=== PATIENT | female | born 1985 | race Hispanic/Latino ===

== ENCOUNTER 2020-11-16 13:45 | Emergency (ER) | payer MEDICAID, OTHER ==
[~2020-11-16] VITALS: Ht 154.9 cm; Wt 89.8 kg
[2020-11-16 13:47] VITALS: BP 119/64
[2020-11-16] MEDS ORDERED: MAG/ALUM/SIMETH 30 ML UDCUP PO ONE (14:00)
[2020-11-16 14:21] LABS: BASOPHILS % (AUTO) 0.3 % (0.0-5.0); HEMATOCRIT 39.8 % (36-48); LYMPHOCYTES % (AUTO) 27.9 % (21.0-51.0); MEAN CORPUSCULAR HEMOGLOBIN 26.1 pg (27.0-33.0); MEAN CORPUSCULAR HGB CONC 31.9 g/dL (32.0-36.0); MEAN CORPUSCULAR VOLUME 81.7 fL (79-99); MONOCYTES % (AUTO) 7.1 % (3.0-13.0); NEUTROPHILS % (AUTO) 63.3 % (40.0-77.0); PLATELET COUNT (AUTO) 288 K/uL (130-400); RED BLOOD CELL COUNT(AUTO) 4.87 MIL/uL (4.00-5.50); RED CELL DISTRIBUTION WIDTH 13.9 % (11.0-15.5); WHITE BLOOD COUNT (AUTO) 12.4 K/uL (4.8-10.8)
[2020-11-16 14:22] LABS: APPEARANCE,URINE Clear (CLEAR); BILIRUBIN,URINE Negative (NEGATIVE); COLOR,URINE Yellow (YELLOW); GLUCOSE, URINE (UA) TRACE mg/dL (NEGATIVE); KETONES,URINE Negative (NEGATIVE); LEUKOCYTE ESTERASE ,URINE Trace (NEGATIVE); NITRATE,URINE Negative (NEGATIVE); OCCULT BLOOD,URINE Negative (NEGATIVE); PH,URINE 6.5 (5.0-8.0); PROTEIN,URINE Negative (NEGATIVE)
[2020-11-16 14:35] LABS: CREATININE 0.7 mg/dL (0.5-1.5); POTASSIUM 4.2 mmol/L (3.5-5.1)
[2020-11-16 14:42] LABS: BACTERIA,URINE Few /HPF (None Seen); MUCUS,URINE Few LPF (None Seen); SQUAMOUS EPITHELIAL CELL,UR Few /HPF (0-2)
[2020-11-16 14:53] LABS: ALBUMIN 3.1 g/dL (3.5-5.0); BILIRUBIN,TOTAL 0.1 mg/dL (0.2-1.0); TOTAL PROTEIN, SERUM 7.6 g/dL (6.0-8.3)
[2020-11-16] MEDS ORDERED: CEFTRIAXONE 1G VIAL IM ONE (15:00)
[2020-11-16] MEDS ORDERED: LIDOCAINE HCL-MPF 1% 2ML VIAL ONE (15:15)
[2020-11-16] MEDS ORDERED: CEPH500B PO (15:51)
== END 2020-11-16 16:16 | disposition home or self-care (01) ==
LOC: EDH 13:45
DX: O23.41 Unspecified infection of urinary tract in pregnancy, first trimester (principal); O99.611 Diseases of the digestive system complicating pregnancy, first trimester; K29.70 Gastritis, unspecified, without bleeding; E66.9 Obesity, unspecified; Z68.37 Body mass index [BMI] 37.0-37.9, adult; Z3A.01 Less than 8 weeks gestation of pregnancy
CPT/HCPCS: 36415; 76705; 76801; 80053; 81001; 83690; 84702; 85025; 96372; 99285; J0696; J3490

== ENCOUNTER 2020-11-29 14:52 | Emergency (ER) | payer MEDICAID, OTHER ==
[~2020-11-29] VITALS: Ht 157.5 cm; Wt 86.2 kg
[~2020-11-29 14:52] MED LIST: CEPH500B PO
[2020-11-29 14:53] VITALS: BP 135/53
[2020-11-29 16:23] LABS: BASOPHILS % (AUTO) 0.4 % (0.0-5.0); EOSINOPHILS % (AUTO) 1.2 % (0.0-8.0); HEMATOCRIT 40.6 % (36-48); LYMPHOCYTES % (AUTO) 26.5 % (21.0-51.0); MEAN CORPUSCULAR HEMOGLOBIN 25.7 pg (27.0-33.0); MEAN CORPUSCULAR VOLUME 80.4 fL (79-99); MONOCYTES % (AUTO) 6.4 % (3.0-13.0); PLATELET COUNT (AUTO) 295 K/uL (130-400); RED BLOOD CELL COUNT(AUTO) 5.05 MIL/uL (4.00-5.50); RED CELL DISTRIBUTION WIDTH 13.7 % (11.0-15.5); WHITE BLOOD COUNT (AUTO) 13.1 K/uL (4.8-10.8)
[2020-11-29 16:45] LABS: CREATININE 0.7 mg/dL (0.5-1.5); POTASSIUM 4.2 mmol/L (3.5-5.1)
[2020-11-29 16:49] LABS: ALBUMIN 3.5 g/dL (3.5-5.0); BILIRUBIN,TOTAL 0.2 mg/dL (0.2-1.0); TOTAL PROTEIN, SERUM 7.7 g/dL (6.0-8.3)
[2020-11-29 17:12] LABS: APPEARANCE,URINE Clear (CLEAR); BILIRUBIN,URINE Negative (NEGATIVE); COLOR,URINE Yellow (YELLOW); GLUCOSE, URINE (UA) Negative (NEGATIVE); KETONES,URINE Negative (NEGATIVE); LEUKOCYTE ESTERASE ,URINE Trace (NEGATIVE); NITRATE,URINE Negative (NEGATIVE); OCCULT BLOOD,URINE Large (NEGATIVE); PH,URINE 5.5 (5.0-8.0); PROTEIN,URINE Negative (NEGATIVE)
[2020-11-29 17:28] LABS: BACTERIA,URINE Few /HPF (None Seen); SQUAMOUS EPITHELIAL CELL,UR Few /HPF (0-2)
[2020-11-29 17:29] LABS: MUCUS,URINE Moderate LPF (None Seen)
[2020-11-29] MEDS ORDERED: MACR100 PO (17:46)
[2020-11-29] MEDS ORDERED: LIDOCAINE HCL-MPF 1% 2ML VIAL ONE (17:51)
[2020-11-29] MEDS ORDERED: CEFTRIAXONE 1G VIAL ONE (17:51)
[2020-11-29] MEDS ORDERED: CEFTRIAXONE 1G VIAL IM ONE (18:00)
== END 2020-11-29 18:34 | disposition home or self-care (01) ==
LOC: EDH 14:52
DX: O03.4 Incomplete spontaneous abortion without complication (principal); N39.0 Urinary tract infection, site not specified; Z98.890 Other specified postprocedural states; Z79.899 Other long term (current) drug therapy
CPT/HCPCS: 36415; 76801; 80053; 81001; 84702; 84703; 85025; 86900; 86901; 96372; 99284; J0696; J3490

== ENCOUNTER 2022-01-02 18:29 | Emergency (ER) | payer BC, MEDICAID ==
[~2022-01-02] VITALS: Ht 157.5 cm; Wt 90.7 kg
[~2022-01-02 18:29] MED LIST changes: +MACR100 PO
[2022-01-02 19:08] LABS: CREATININE 0.8 mg/dL (0.5-1.5); POTASSIUM 3.5 mmol/L (3.5-5.1)
[2022-01-02 19:10] LABS: BASOPHILS % (AUTO) 0.3 % (0.0-5.0); EOSINOPHILS % (AUTO) 1.1 % (0.0-8.0); LYMPHOCYTES % (AUTO) 34.5 % (21.0-51.0); MEAN CORPUSCULAR HEMOGLOBIN 24.9 pg (27.0-33.0); MEAN CORPUSCULAR HGB CONC 31.3 g/dL (32.0-36.0); MEAN CORPUSCULAR VOLUME 79.5 fL (79-99); NEUTROPHILS % (AUTO) 56.7 % (40.0-77.0); PLATELET COUNT (AUTO) 296 K/uL (130-400); RED BLOOD CELL COUNT(AUTO) 5.03 MIL/uL (4.00-5.50); RED CELL DISTRIBUTION WIDTH 13.9 % (11.0-15.5); WHITE BLOOD COUNT (AUTO) 12.4 K/uL (4.8-10.8)
[2022-01-02 19:13] LABS: ALBUMIN 3.1 g/dL (3.5-5.0); TOTAL PROTEIN, SERUM 7.2 g/dL (6.0-8.3)
[2022-01-02] MEDS ORDERED: DiphenhydrAMINE HCL 50 MG/ML VIAL IV ONE (19:30)
[2022-01-02] MEDS ORDERED: FAMOTIDINE 20MG VIAL IV ONE (19:30)
[2022-01-02] MEDS ORDERED: DIPH25CA53 PO (20:53)
[2022-01-02] MEDS ORDERED: FAMO-136 PO (20:53)
[2022-01-02 21:08] VITALS: BP 123/81
== END 2022-01-02 21:09 | disposition home or self-care (01) ==
LOC: EDH 18:29
DX: L50.0 Allergic urticaria (principal)
CPT/HCPCS: 99284; 96374; 96375; 80053; 85025; 36415; J1200; J3490

== ENCOUNTER 2024-07-23 11:02 | Emergency (ER) | payer BC, MEDICAID, OTHER ==
[~2024-07-23] VITALS: Ht 157.5 cm; Wt 86.2 kg
[~2024-07-23 11:02] MED LIST changes: +DIPH25CA53 PO; +FAMO-136 PO
[2024-07-23 12:04] LABS: APPEARANCE,URINE CLEAR (CLEAR); BILIRUBIN,URINE NEGATIVE (NEGATIVE); COLOR,URINE LIGHT-YELLOW (YELLOW); GLUCOSE, URINE (UA) >=1000 mg/dL (NEGATIVE); KETONES,URINE 40 mg/dL (NEGATIVE); LEUKOCYTE ESTERASE ,URINE 250 Leu/uL (NEGATIVE); NITRATE,URINE NEGATIVE (NEGATIVE); OCCULT BLOOD,URINE NEGATIVE (NEGATIVE); PH,URINE 5.5 (5.0-8.0); PROTEIN,URINE NEGATIVE (NEGATIVE); UROBILINOGEN,URINE 0.2 mg/dL (0.2-1.0)
--- NOTE | 2024-07-23 12:04 | ERN ---
ED Note History of Present Illness Stated Complaint: FREQUENCY, WASP BITE TO LLE Chief Complaint: Urinary Frequency Time Seen by MD: 11:06 Time Seen by Midlevel: 11:10 Dictation: 38-year-old coming in with complaints of urinary frequency since Tuesday and two lost bites to her left leg. Allergies: Coded Allergies: No Known Drug Allergies (Unverified Allergy, Unknown, 11/16/20) Home Meds Active Scripts Cephalexin Monohydrate (Keflex) 500 Mg Cap, 500 MG PO TID for 21 Days, #28 CAP Prov:JASON COTA NP 07/23/24 Famotidine (Pepcid) 20 Mg Tablet, 20 MG PO DAILY for 10 Days, #10 TAB 0 Refills Prov:REJI KIMBROUGH MD 01/02/22 Diphenhydramine HCl (Diphenhydramine HCl) 25 Mg Capsule, 25 MG PO QID PRN for RASH, #30 CAP 0 Refills Prov:REJI KIMBROUGH MD 01/02/22 Nitrofurantoin/Nitrofuran Mac (Macrobid) 100 Mg Cap, 1 CAP PO BID for 7 Days, #14 CAP 0 Refills Prov:BELLA NELSON 11/29/20 Cephalexin Monohydrate (Keflex) 500 Mg Cap, 500 MG PO TID for 7 Days, #21 CAP Prov:BELLA NELSON 11/16/20 Past Medical History Past Medical History: No Pertinent History Surgical History: Appendectomy Social History: Negative LMP: July 12, 2024 : 3 Para: 2 Aborts: 0 Review of System Dictation Constitutional: Negative for fever,chills, and weight loss Eyes: Negative for injury, pain,redness, and discharge ENT: Negative for injury,pain or swelling Cardiovascular: Negative for chest pain, palpitations, and edema Respiratory: Negative for shortness of breath, cough, and wheezing, Abdomen/GI: Negative for abdominal pain, nausea, vomiting, diarrhea, and constipation Back: Negative for injury and pain : Negative for injury, bleeding and discharge complaining of urinary frequency MS/Extremity: Negative for injury and deformity Skin: Negative for rash, and discoloration, lost bite to left thigh Neuro: Negative for headache, weakness, numbness, tingling, and seizure Psych: Negative for suicide ideation, homicidal ideation, and hallucinations Review of Systems: was completed Initial Vital Sign VS Vital Signs Date Time Temp Pulse Resp B/P (MAP) Pulse Ox O2 Delivery O2 Flow Rate FiO2 07/23/24 11:03 98.1 102 16 112/76 98 Room Air 0 07/23/24 12:55 21 Physical Exam Dictation General: awake, alert, NAD Head/Face: Normocephalic, atraumatic Eyes: PERRL, EOMI, vision at baseline ENT: oral cavity clear, TMs clear, no signs of infection Neck: Trachea midline, supple, no nuchal rigidity Cardiovascular: RRR, normal S1/S2, No MRGs, no JVD Respiratory: CTAB, no respiratory distress, No rales or wheezes Abdomen: Soft, non-tender, non-distended, normal bowel sounds, no guarding or rebound. Skin: Warm, dry, normal turgor, no rash, insect bite noted to left eye no streaking, no induration, no drainage no open wounds MS/Extremity: Pulses equal, no cyanosis, neurovascular intact, FROM Neuro: COAx4, GCS 15, strength 5/5, CN 2-12 intact, normal cerebellar exam, no rmal gait, Psych: Normal behavior, mood, and affect normal Results (Laboratory/Radiology) Laboratory/Radiology Laboratory Tests Test 07/23/24 11:31 Urine Color LIGHT-YELLOW (YELLOW) Urine Appearance CLEAR (CLEAR) Urine pH 5.5 (5.0-8.0) Urine Specific Strong 1.033 (1.001-1.031) Urine Protein NEGATIVE mg/dL (NEGATIVE) Urine Glucose (UA) >=1000 mg/dL (NEGATIVE) H Urine Ketones 40 mg/dL (NEGATIVE) H Urine Occult Blood NEGATIVE (NEGATIVE) Urine Nitrate NEGATIVE (NEGATIVE) Urine Bilirubin NEGATIVE mg/dL (NEGATIVE) Urine Urobilinogen 0.2 mg/dL (0.2-1.0) Urine Leukocyte Esterase 250 Dane/uL (NEGATIVE) H Urine RBC 2-5 /HPF (0-1) H Urine WBC >100 /HPF (0-1) H Urine Squamous Epithelial Cells RARE /HPF (0-2) Urine Bacteria None /HPF (None Seen) Urine HCG, Qualitative NEGATIVE (NEGATIVE) Labs Reviewed?: Yes ED Course ED Course Orders Procedure Category Date Status Time Urinalysis Profile LAB 07/23/24 Complete 11:13 ,Urine Test LAB 07/23/24 Complete 11:13 Culture Urine JOY 07/23/24 In Process 12:05 Ceftriaxone 1g Vial PHA 07/23/24 Complete (Rocephine 1g Inj) 12:53 Current Medications Medications (Trade) Dose Ordered Sig/Dewey Route PRN Reason Start Time Stop Time Status Last Admin Dose Admin Ceftriaxone Sodium (ROCEphine 1G INJ) 1 gm ONCE STAT IM 07/23/24 12:53 07/23/24 12:56 DC 07/23/24 13:00 Vital Signs Date Time Temp Pulse Resp B/P (MAP) Pulse Ox O2 Delivery O2 Flow Rate FiO2 07/23/24 12:55 98.1 100 16 115/76 98 Room Air* 0 21 07/23/24 11:03 98.1 102 16 112/76 98 Room Air 0 Medical Decision Making MDM MDM: 38-year-old coming in with complaints of urinary frequency since Tuesday and two lost bites to her left leg. UA shows evidence of urinary tract infection. Patient will receive one dose of the Rocephin IM in the ER and will be discharged with antibiotics for her urinary tract infection. Discussed with the patient to return to the hospital if you develops any back pain, nausea vomiting. Patient verbalized understanding, answered all questions. Differential diagnosis: UTI, , pyelo nephritis Rationale: Tests considered and ordered secondary to shared decision making include: Previous outside records reviewed: Old ER visits. Risk of complication and/or morbidity or mortality of patient management: None Medications-Per medication reconciliation Need for hospitalization: Patient does not meet criteria for hospitalization. Need for emergency major/minor surgery: No There are no social concerns with this patient. Prescription drug management Prescriptions will include symptomatic care Patient's prior external medical records from other ER visits were reviewed by me as indicated. Prior testing and results from previous visits were reviewed. Prior tests were taken into account with medical decision making and resource utilization, independent historian/historians were used to obtain complete medical history. I independently interpreted the test that were performed, results were reviewed by me and considered findings on radiology if ordered. Medical management and examination interpretation discussions were had by me with other qualified healthcare professionals as indicated for the patient's care. DX & DISP Disposition: Discharge Departure Impression: Primary Impression: Urinary tract infection Condition: Stable Scripts Cephalexin Monohydrate (Keflex) 500 Mg Cap 500 MG PO TID for 21 Days, #28 CAP Prov: COTA,JASON SAMPLE DISPLAY PREPARER 07/23/24 Referrals: SIGIFREDO MAX (PCP) Time of Disposition: 12:57 I have reviewed the case, and I agree with, Diagnosis and Plan I performed the substantive portion of the visit. I have reviewed and personally made and approve the management plan that is documented in the notes by myself or the JULIAN. I acknowledge full responsibility for the patient's management plan. JASON COTA NP July 23, 2024 12:04 EL FORDE MD July 23, 2024 18:22
[2024-07-23 12:05] LABS: ADD UA MICROSCOPIC YES
[2024-07-23 12:07] LABS: HCG,QUALITATIVE URINE NEGATIVE (NEGATIVE)
[2024-07-23 12:10] LABS: SQUAMOUS EPITHELIAL CELL,UR RARE /HPF (0-2); WBC,URINE >100 /HPF (0-1)
[2024-07-23 12:55] VITALS: BP 115/76; PULSE 100; RESP 16; TEMP 98; O2SAT 98
[2024-07-23] MEDS ORDERED: CEPH500B PO (12:57)
[2024-07-23] MEDS: cefTRIAXone 1G VIAL IM STA (13:00)
== END 2024-07-23 13:20 | disposition home or self-care (01) ==
LOC: EDH 11:02
DX: N39.0 Urinary tract infection, site not specified (principal); Z90.49 Acquired absence of other specified parts of digestive tract; Z79.899 Other long term (current) drug therapy
CPT/HCPCS: 99283; 87086 ×2; 87186; 81001; 81025; 96372; J0696